=== PATIENT | male | born 2000 | race Caucasian/White ===

== ENCOUNTER 2020-11-14 00:17 | Emergency (ER) | payer SELFPAY ==
--- NOTE | 2020-11-14 03:56 | EDM.PDOC ---
ED HPI GENERAL MEDICAL PROBLEM - General Chief Complaint: Chest Pain Stated Complaint: SOB/CHEST PAIN Time Seen by Provider: 11/14/20 03:54 - History of Present Illness INITIAL COMMENTS - FREE TEXT/NARRATIVE: Patient arrived to ED by private vehicle He is currently working night shifts He reports being awoken from sleep about 0930 yesterday feeling short of breath He sat bolt upright, and took a few deep breaths and felt better, then went back to sleep He awoke about [address] to work, he felt vaguely unwell While at work he began experiencing intermittent/fluctuating chest pain Describes feeling of pressure localized to the right pectoral area, exacerbated by breathing He left work early due to worsening of symptoms, and came to ED for evaluation Denies rudy dyspnea Denies dizziness, nausea, vomiting He denies any acute or recent illness or injury Denies history of cardiac disease Right Chest Pain Score (Numeric/FACES): 5 - Related Data Allergies Allergy/AdvReac Type Severity Reaction Status Date / Time No Known Allergies Allergy Verified 11/14/20 02:19 Home Meds: Home Meds . [No Known Home Meds] 04/30/18 [History] Past Medical History - Past Health History Medical/Surgical History: Denies Medical/Surgical History HEENT History: Reports: None Cardiovascular History: Reports: Other (See Below) Other Cardiovascular History: "valve problem" Respiratory History: Reports: None Gastrointestinal History: Reports: None Genitourinary History: Reports: None Musculoskeletal History: Reports: None Neurological History: Reports: None Psychiatric History: Reports: None Endocrine/Metabolic History: Reports: None Hematologic History: Reports: None Immunologic History: Reports: None Oncologic (Cancer) History: Reports: None Dermatologic History: Reports: None - Infectious Disease History Infectious Disease History: Reports: Novel Coronavirus - Past Surgical History Head Surgeries/Procedures: Reports: None Cardiovascular Surgical History: Reports: None Social & Family History - Family History Family Medical History: No Pertinent Family History - Tobacco Use Tobacco Use Status *Q: Never Tobacco User - Caffeine Use Caffeine Use: Reports: Coffee, Energy Drinks - Recreational Drug Use Recreational Drug Use: No ED ROS GENERAL - Review of Systems Review Of Systems: See Below Free Text/Narrative/Comment: Constitutional - no fever Eyes - no eye pain; no visual disturbance ENT - no rhinorrhea; no congestion; no epistaxis Cardiovascular - chest pain Respiratory - no shortness of breath; no cough Gastrointestinal - no abdominal pain; no nausea; no vomiting; no diarrhea Genitourinary - no dysuria Musculoskeletal - no neck pain; no back pain; no extremity injury Neurological - no headache; no speech disturbance; no weakness ED EXAM, GENERAL - Physical Exam Exam: See Below Free Text/Narrative:: Constitutional - awake; alert; no acute distress Head - no facial swelling or weakness Eyes - extra ocular motion intact; conjunctiva normal ENT - no nasal deformity; no epistaxis; normal phonation Neck - no swelling Respiratory - normal respiratory effort; no crackles or wheezing; no stridor Cardiovascular - regular rhythm; normal rate; S1; S2; grade 1/6 systolic murmur GI/Abdomen - normal bowel sounds; soft; no tenderness; no rebound; no guarding; no mass Musculoskeletal - grossly normal strength and motion; no swelling or deformity Skin - warm; dry Neurologic - normal speech; no weakness Psychiatric - blunted mood and affect; memory and attention normal #1 Interpretation EKG Date: 11/14/20 Time: 02:29 Rhythm: NSR Rate (Beats/Min): 53 [place]: Normal P-Wave: Present QRS: Normal ST-T: Other (Mild, diffuse ST elevation consistent with early repolarization) QT: Normal EKG Interpretation Comments: Compared with 01/12/2019, overall morphology is similar, mild ST elevation now present Course - Vital Signs Text/Narrative:: . Considered etiologies included: chest pain, dysphoria, pleurisy/pleuritis, GERD, chest wall pain Symptoms and examination were discussed Investigations were initiated Results were discussed No significant abnormality or etiology for symptoms was found PERC criteria were all absent HEART score determination was "low" Symptomatic treatment and primary care follow-up was discussed Patient was felt to be stable for outpatient follow-up Return precautions were provided Last Recorded V/S: Last Vital Signs Temp 36.6 C 11/14/20 02:16 Pulse 59 L 11/14/20 02:16 Resp 16 11/14/20 02:16 BP 118/78 11/14/20 02:16 Pulse Ox 98 11/14/20 02:16 - Orders/Labs/Meds Labs: Laboratory Tests 11/14/20 11/14/20 Range/Units 02:40 02:40 WBC 7.18 (4.23-9.07) K/mm3 RBC 4.61 L (4.63-6.08) M/mm3 Hgb 14.2 (13.7-17.5) gm/dl Hct 40.7 (40.1-51.0) % MCV 88.3 (79.0-92.2) fl MCH 30.8 (25.7-32.2) pg MCHC 34.9 (32.2-35.5) g/dl RDW Std Deviation 39.8 (35.1-43.9) fL Plt Count 246 (163-337) K/mm3 MPV 9.9 (9.4-12.3) fl Neut % (Auto) 53.2 (34.0-67.9) % Lymph % (Auto) 33.1 (21.8-53.1) % [place] % (Auto) 10.6 (5.3-12.2) % Eos % (Auto) 2.4 (0.8-7.0) Baso % (Auto) 0.7 (0.1-1.2) % Neut # (Auto) 3.82 (1.78-5.38) K/mm3 Lymph # (Auto) 2.38 (1.32-3.57) K/mm3 [place] # (Auto) 0.76 (0.30-0.82) K/mm3 Eos # (Auto) 0.17 (0.04-0.54) K/mm3 Baso # (Auto) 0.05 (0.01-0.08) K/mm3 Sodium 143 (136-145) mEq/L Potassium 4.1 (3.5-5.1) mEq/L Chloride 106 (98-107) mEq/L Carbon Dioxide 24 (21-32) mEq/L Anion Gap 17.1 H (5-15) BUN 21 H (7-18) mg/dL Creatinine 1.0 (0.7-1.3) mg/dL Est Cr Clr Drug Dosing 121.62 mL/min Estimated GFR (MDRD) > 60 (>60) mL/min BUN/Creatinine Ratio 21.0 H (14-18) Glucose 96 (70-99) mg/dL Calcium 8.6 (8.5-10.1) mg/dL Total Bilirubin 1.0 (0.2-1.0) mg/dL AST 15 (15-37) U/L ALT 19 (16-63) U/L Alkaline Phosphatase 68 (46-116) U/L Troponin I < 0.017 (0.00-0.056) ng/mL Total Protein 7.2 (6.4-8.2) g/dl Albumin 4.5 (3.4-5.0) g/dl Globulin 2.7 gm/dL Albumin/Globulin Ratio 1.7 (1-2) - Radiology Interpretation Free Text/Narrative:: XR Chest, AP portable, interpreted by repairer typewriter: JAKI Departure - Departure Time of Disposition: 05:17 Disposition: Home, Self-Care 01 Clinical Impression: Chest pain - Discharge Information *PRESCRIPTION DRUG MONITORING PROGRAM REVIEWED*: No *COPY OF PRESCRIPTION DRUG MONITORING REPORT IN PATIENT JOSI: Not Applicable Instructions: Nonspecific Chest Pain, Adult Referrals: PCP,None [Primary Care Provider] - Forms: ED Department Discharge Additional Instructions: Return if condition worsens May resume general activity and regular diet as tolerated Continue usual medications Follow-up with primary care provider is recommended
--- NOTE | 2020-11-14 10:22 | CR ---
Chest: Portable view of the chest was obtained. Comparison: No prior chest imaging is available. Heart size and mediastinum are normal. Lungs are clear with no acute parenchymal change. Bony structure shows nothing acute. Impression: 1. Nothing acute is seen on portable chest x-ray. Diagnostic code #1
== END 2020-11-14 05:29 | disposition home or self-care (01) ==
LOC: JD.ED 00:17
DX: R07.9 Chest pain, unspecified (principal); Z86.16 Personal history of COVID-19
CPT/HCPCS: 36415; 71045; 71045-26; 80053; 84484; 85025; 93005; 93010; 99284; 99284-25

== ENCOUNTER 2021-04-04 21:47 | Emergency (ER) | payer BC | END 2021-04-04 22:31 | disposition home or self-care (01) | LOC: JD.ED 21:47 | DX: K08.89 Other specified disorders of teeth and supporting structures (principal); Z72.0 Tobacco use | CPT/HCPCS: 99282 ==

== ENCOUNTER 2021-04-18 09:28 | Emergency (ER) | payer BC ==
[2021-04-18] MEDS ORDERED: Ondansetron 4 MG Tab.DIS PO ONE (10:22)
== END 2021-04-18 12:45 | disposition home or self-care (01) ==
LOC: JD.ED 09:28
DX: U07.1 COVID-19 (principal); Z87.891 Personal history of nicotine dependence
CPT/HCPCS: 87635; 99284; A9270; 99283; U0002

== ENCOUNTER 2021-06-05 15:26 | Emergency (ER) | payer BC ==
[2021-06-05] MEDS ORDERED: Sodium Chloride 0.9% 10 ML Syringe FLUSH PRN (16:29)
[2021-06-05] MEDS ORDERED: Sodium Chloride 0.9% 1,000 ML IV SCH (16:30)
== END 2021-06-05 18:56 | disposition home or self-care (01) ==
LOC: JD.ED 15:26
DX: R10.9 Unspecified abdominal pain (principal); Z72.0 Tobacco use
CPT/HCPCS: 36415; 74176; 80053; 81001; 83690; 85025; 99284; J7030